=== PATIENT | male | born 1990 | race Caucasian/White ===

== ENCOUNTER → 2017-09-20 | Outpatient (CLI) | payer OTHER | END | disposition home or self-care (01) | LOC: CARD 13:42 | PROVIDERS: ATTEND Internal Medicine Hematology & Oncology | DX: C62.11 Malignant neoplasm of descended right testis (principal); J98.8 Other specified respiratory disorders; R91.8 Other nonspecific abnormal finding of lung field | CPT/HCPCS: 94060; 94726; 94729 ==